=== PATIENT | female | born 1975 | race Caucasian/White ===

== ENCOUNTER 2021-03-10 10:20 | Outpatient (CLI) | payer BC | END 2021-03-10 10:21 | disposition home or self-care (01) | LOC: DTY/OP 10:20 | PROVIDERS: ATTEND Family Medicine Sports Medicine | DX: E11.65 Type 2 diabetes mellitus with hyperglycemia (principal) | CPT/HCPCS: 97802 ==

== ENCOUNTER 2023-10-22 16:02 | Outpatient (CLI) | payer BC | END 2023-10-22 16:03 | disposition home or self-care (01) | LOC: SCSRAD 16:02 | PROVIDERS: ATTEND Family Medicine Sports Medicine | DX: M25.511 Pain in right shoulder (principal) ==